=== PATIENT | female | born 1955 | race Caucasian/White ===

== ENCOUNTER → 2020-10-09 14:18 | Outpatient (CLI) | payer MEDICARE, SELFPAY ==
[2020-10-09] MEDS: COVID-19 VACC #1, MRNA(MOD) 100 MCG/0.5 ML VIAL IM (14:25)
== END ==
PROVIDERS: Visit Provider Internal Medicine
DX: Z23 Encounter for immunization (principal)
CPT/HCPCS: 0011A; 91301

== ENCOUNTER → 2020-11-06 14:40 | Outpatient (CLI) | payer MEDICARE, SELFPAY ==
[2020-11-06] MEDS: COVID-19 VACC #2, MRNA(MOD) 100 MCG/0.5 ML VIAL IM (14:50)
== END ==
PROVIDERS: Visit Provider Internal Medicine
DX: Z23 Encounter for immunization (principal)
CPT/HCPCS: 0012A; 91301

== ENCOUNTER 2022-06-22 15:00 | Emergency (ER) | payer OTHER, SELFPAY ==
[2022-06-22 15:11] VITALS: BP 112/69; PULSE 81; RESP 18; TEMP 35.7; O2SAT 96; BMI 27.1
--- NOTE | 2022-06-22 15:15 | DI.RAD.S_ITS ---
PROCEDURE: XR FINGER RT MIN 2V INDICATIONS: fall, finger has laceration and deformity TECHNIQUE: AP hand, 2 views of the 2nd finger(s) acquired. COMPARISON: None. FINDINGS: Bones: There is a dislocation of the proximal phalanx of the 2nd finger, with dorsal dislocation of the middle phalanx in relation to the proximal phalanx. On these images, no associated fracture is seen. Soft tissues: No suspicious soft tissue calcifications. IMPRESSION: 2nd finger dislocation. Dictated by: Francisco Acosta M.D. on 06/22/2022 at 14:50 Approved by: Francisco Acosta M.D. on 06/22/2022 at 14:50
--- NOTE | 2022-06-22 16:09 | ED_ITS ---
HPI - General Adult General Chief complaint: Extremity Injury, Upper Stated complaint: R hand, pointer finger pain- bleeding after fall Time Seen by Provider: 06/22/22 16:00 Source: patient Mode of arrival: Ambulatory History of Present Illness HPI narrative: 67-year-old female who is here for evaluation of a right index finger injury. States she was out walking her dog. She tripped and fell forward. She states she bent her right index finger back and now has a deformity to the finger. Also a cut on the bottom of it. No interventions prior to arrival. No other injuries from the event. Related Data Allergies Allergy/AdvReac Type Severity Reaction Status Date / Time No Known Drug Allergies Allergy Verified 06/22/22 15:14 Review of Systems Musculoskeletal Musculoskeletal: Reports system reviewed and no additional complaints, except as documented Integumentary/Breasts Skin/Breast: Reports system reviewed and no additional complaints, except as documented Neurologic Neurologic: Reports system reviewed and no additional complaints, except as documented Hematologic/Lymphatic On Anticoagulants: No Patient History Social History Smoking Status: Never smoker Smoking Status: Never smoker alcohol intake frequency: 0-2 drinks per day Substance Use Type: does not use Exam Initial Vital Signs Initial Vital Signs: Vital Signs Temperature 96.3 F L 06/22/22 15:11 Pulse Rate 81 06/22/22 15:11 Respiratory Rate 18 06/22/22 15:11 Blood Pressure 112/69 06/22/22 15:11 Pulse Oximetry 96 06/22/22 15:11 Oxygen Delivery Method 06/22/22 15:11 HENIA Head: normal to inspection Cardio Pulses: radial pulses present on the right Skin Other: 1 cm laceration volar aspect right index finger over the PIP joint. Neuro Sensory Exam: no sensory deficits noted Extrem Other: Obvious deformity of the PIP joint of the right index finger. Procedures Laceration Repair Laceration 1: Site: other (Finger) Size (cm): 1 Description: linear and irregular Depth: simple, single layer Local Anesthetic: lidocaine 1% Skin layer closed with: nylon Skin layer suture size: 5-0 Number of sutures: 1 Technique: simple, interrupted Nerve Block Nerve Block 1: Local Anesthetic: lidocaine 1% Amount of anesthesia used (mL): 6 Side: right Nerve Blocks: digital Procedure Successful: Yes Patient Tolerated Procedure: No complications Orthopedic Joint Reduction Joint #1: Side: right Joint Reduction Location: finger Analgesia: nerve block Local Anesthesia: lidocaine 1% Amount of anesthesic used (mL): 6 Technique used: direct manipulation Post-reduction neuro exam: no change Post-reduction vascular: no change Post Reduction X-Ray Obtained: Yes Post Reduction X-Ray Results: reduced Splint Applied: Yes Patient Tolerated Procedure: Well and No complications Orthopedic Splinting/Casting Injury #1: Side: right Upper Extremity Injury Location: finger Upper Extremity Immobilizer: aluminum form splint Post splinting neuro exam: intact Post splinting vascular exam: intact Placed by: Nursing Course Orders Ordered: ED Orders 06/22/22 15:15 XR finger RT min 2V Stat 06/22/22 17:30 XR finger RT min 2V Stat Discontinued Medications Bacitracin (Bacitracin Oint 0.9 Gm Pckt) 1 applic TOP NOW ONE Stop: 06/22/22 17:54 Last Admin: 06/22/22 18:23 Dose: 1 applic Documented By: BT Lidocaine HCl (Lidocaine 1% (Pf)) 2 ml INJ NOW ONE Stop: 06/22/22 16:01 Last Admin: 06/22/22 17:37 Dose: 2 ml Documented By: RLS Lidocaine HCl (Lidocaine 1% (Pf)) 2 ml INJ NOW ONE Stop: 06/22/22 16:48 Last Admin: 06/22/22 17:36 Dose: 2 ml Documented By: RLS Lidocaine HCl (Lidocaine 1% (Pf)) 2 ml INJ NOW ONE Stop: 06/22/22 17:12 Last Admin: 06/22/22 17:37 Dose: 2 ml Documented By: RLS Vital Signs Vital signs: Vital Signs - 8 hr 06/22/22 15:11 Temperature 96.3 F L Pulse Rate 81 Respiratory Rate 18 Blood Pressure 112/69 Pulse Oximetry 96 Oxygen Delivery Method Room Air Medical Decision Making Imaging Data Extremity x-ray #1: Radiologist's Impression: [address] [address] XRay Report Signed Patient: Angely Garcias MR#: [id number] : 1955 Acct:[id number] Age/Sex: 67 / F Date of Service: 06/22/22 Loc: ED Accession Number: [id number] ?? Procedure: XR finger RT min 2V Ordering Provider: Blue Haley D.O. PROCEDURE:? XR FINGER RT MIN 2V ? INDICATIONS:? fall, finger has laceration and deformity ? TECHNIQUE:? AP hand, 2 views of the 2nd finger(s) acquired.? ? COMPARISON:? None. ? FINDINGS:? ? Bones:? There is a dislocation of the proximal phalanx of the 2nd finger, with dorsal dislocation of the middle phalanx in relation to the proximal phalanx.? On these images, no associated fracture is seen. ? Soft tissues:? No suspicious soft tissue calcifications.? IMPRESSION:? 2nd finger dislocation. ? ? Dictated by: Francisco Acosta M.D. on 06/22/2022 at 14:50 ? ? Approved by: Francisco Acosta M.D. on 06/22/2022 at 14:50?? Extremity x-ray #2: Radiologist's Impression: [place] [address] XRay Report Signed Patient: Angely Garcias MR#: [id number] : 1955 Acct:[id number] Age/Sex: 67 / F Date of Service: 06/22/22 Loc: ED Accession Number: [id number] ?? Procedure: XR finger RT min 2V Ordering Provider: Blue Haley D.O. PROCEDURE:? XR FINGER RT MIN 2V ? INDICATIONS:? post reduction ? TECHNIQUE:? AP hand, 2 views of the 2nd finger(s) acquired.? ? COMPARISON:? [facility], , XR FINGER RT MIN 2V, 06/22/2022, 15:23. ? FINDINGS:? ? Bones:? On this post reduction study, the proximal interphalangeal joint of the 2nd finger demonstrates normal alignment.? No associated fractures are detected. ? Soft tissues:? Soft tissue swelling of the 2nd finger can be seen. ? ? ? IMPRESSION:? 2nd finger relocation, without an associated fracture fragment identified. ? Second finger soft tissue swelling. ? ? Dictated by: Francisco Acosta M.D. on 06/22/2022 at 16:57 ? ? Approved by: Francisco Acosta M.D. on 06/22/2022 at 16:58?? MDM Narrative Medical decision making narrative: Initially neurovascularly intact. X-ray showed dislocation which was reduced. Did have a difficult time getting her numb with the digital block. She did tolerate the reduction well. She had a laceration on the volar aspect. Low suspicion for an open joint based on the exploration of this. Was closed as described above. She was placed in a splint. She was given care instructions and return precautions. She expressed understanding and agreement. Discharge Plan Departure Patient Disposition: Home Clinical Impression: Dislocation of finger, interphalangeal joint, right, closed, Laceration of skin Instructions: DI for Finger Dislocation Activity Restrictions/Additional Instructions: The splint should remain on for the next 48 hours. After that you can take it off and do [id number] exercises with your finger like we discussed. The stitches that were placed will need to be removed in 7-10 days. Until then you can keep them covered with antibiotic ointment. Contact your primary doctor for follow-up. Return to the emergency department for any new or worsening symptoms. Referrals: Adrienne De La Fuente MD [Primary Care Provider] -
--- NOTE | 2022-06-22 17:30 | DI.RAD.S_ITS ---
PROCEDURE: XR FINGER RT MIN 2V INDICATIONS: post reduction TECHNIQUE: AP hand, 2 views of the 2nd finger(s) acquired. COMPARISON: [facility], , XR FINGER RT MIN 2V, 06/22/2022, 15:23. FINDINGS: Bones: On this post reduction study, the proximal interphalangeal joint of the 2nd finger demonstrates normal alignment. No associated fractures are detected. Soft tissues: Soft tissue swelling of the 2nd finger can be seen. IMPRESSION: 2nd finger relocation, without an associated fracture fragment identified. Second finger soft tissue swelling. Dictated by: Francisco Acosta M.D. on 06/22/2022 at 16:57 Approved by: Francisco Acosta M.D. on 06/22/2022 at 16:58
[2022-06-22] MEDS: LIDOCAINE 1% (PF) 2 ML INJ ×3 (17:36→17:37)
[2022-06-22] MEDS: BACITRACIN OINT 0.9 GM PCKT 1 APPLIC TOP (18:23)
[2022-06-22 18:40] VITALS: BP 122/67; RESP 18
== END 2022-06-22 18:40 | disposition home or self-care (01) ==
PROVIDERS: Emergency Provider Emergency Medicine; PCP Internal Medicine
DX: S63.280A Dislocation of proximal interphalangeal joint of right index finger, initial encounter (principal); S61.210A Laceration without foreign body of right index finger without damage to nail, initial encounter; W01.0XXA Fall on same level from slipping, tripping and stumbling without subsequent striking against object, initial encounter
CPT/HCPCS: 12001; 26742; 29130; 64450; 73140; 99284